=== PATIENT | male | born 1980 | race Caucasian/White ===

== ENCOUNTER 2024-05-24 13:48 | Emergency (ER) | payer OTHER, SELFPAY ==
[2024-05-24 13:53] VITALS: BP 162/99; PULSE 107; RESP 20; TEMP 36.3; O2SAT 97; BMI 30.4
--- NOTE | 2024-05-24 14:27 | ED.GENADULT ---
HPI - General Adult General Date Seen: 05/24/24 Chief complaint: Extremity Pain/Injury, Lower Stated complaint: prior bloodclots.. Off meds for past meds. feeli Time Seen by Provider: 05/24/24 14:05 History of Present Illness HPI narrative: 43-year-old gentleman with a history of right lower extremity DVT. Per his chart from [facility] he has a history of factor 5 Leiden. He reports that he has had at least 2 blood clots over his life. It sounds like after the 1st blood clot he had been managed on Coumadin but then had another blood clot while on Coumadin. His recollection is unclear but it sounds like either he had a clot that broke through his Coumadin therapy or possibly he will was subtherapeutic with his INR. In any case he was changed from Coumadin to Lovenox for about a year. After he had been on Lovenox for while he then saw different doctor and they switched him from Lovenox to Eliquis. He has been on Eliquis for the past 2 and half years. He is little bit unclear about who prescribes it but it sounds like he has a doctor through the [facility] [place] who had been prescribing his Eliquis. He had been on anticoagulation but has been off Eliquis for about a month because of finances. He lost his insurance and cannot afford it. He had been able to contact his doctors at [facility] and they apparently gave him a voucher for a 1 month supply of free Eliquis. He took that and now has been off Eliquis for about a month. He does have some chronic intermittent pain affecting his right calf and popliteal fossa and leg ever since his clot a couple of years ago. He has been having worsening pain in his right leg from his ankle up to his groin and low back. Pain began to get worse 3 days ago on Friday. He is not having any chest pain. No shortness of breath. No fever. No known injury. He also says that since he lost his insurance through his job he has been planning to apply firm [facility] or [facility] It sounds like he and his were going to do that. He says that normally she would help him apply but lately they have been fighting so she is not helping. He has not applied yet for insurance. Related Data Previous Rx's ?Medication ?Instructions ?Recorded enoxaparin 100 mg/mL subcutaneous 100 mg subcut Q12H #14 mL 05/24/24 syringe (Lovenox) warfarin 5 mg tablet 5 mg PO DAILY #7 tabs 05/24/24 Allergies Allergy/AdvReac Type Severity Reaction Status Date / Time No Known Drug Allergies Allergy Verified 05/24/24 13:58 Exam Narrative: Exam Narrative: Constitutional: Appears well-developed and well-nourished. Alert. Conversant. Non toxic. HENT: Head: Atraumatic. Nose: Nose normal. Mouth/Throat: Oral mucosa is clear and moist. no trismus. Pharynx normal. Eyes: Conjunctivae normal. EOM normal. Pupils equal, round, and reactive to light. No scleral icterus. Neck: Normal range of motion. Neck supple. No tracheal deviation present. Cardiovascular: Normal rate, regular rhythm. No gallop. No friction rub. No murmur heard. Symmetric radial artery pulses Pulmonary/Chest: Effort normal. No stridor. No respiratory distress. No wheezes. No rales. No rhonchi . No tenderness. Abdominal: Soft. Bowel sounds normal. No distension. No mass. No tenderness. No rebound. No guarding. Musculoskeletal: RUE: Normal range of motion. No tenderness. No deformity LUE: Normal range of motion. No tenderness. No deformity RLE: Normal range of motion in his hip, knee, ankle. Intact toe wiggling. Distally neurovascularly intact. Normal cap refill. Strong DP and PT artery pulses. Diffuse tenderness on the posterior hamstring, popliteal fossa, calf. No ecchymosis or redness. No palpable cords. Trace edema. LLE: Normal range of motion. No edema. No tenderness. No deformity Neurological: Alert and oriented to person, place, and time. Normal strength. CN II-VII intact. No sensory deficit. GCS eye subscore is 4. GCS verbal subscore is 5. GCS motor subscore is 6. Normal coordination Skin: Skin is warm and dry. No rash noted. No pallor. Normal capillary refill. Psychiatric: Normal mood. Tearful and sad when talking about his Const: Vital Signs, click to edit/add: Vital Signs - 24 hr 05/24/24 13:53 05/24/24 15:28 Temperature 97.4 F L Pulse Rate [Pulse Oximeter] 107 H 98 Respiratory Rate 20 Blood Pressure [Ri ght Upper Arm] 162/99 H 152/118 H Pulse Oximetry 97 97 Oxygen Delivery Me thod Room Air Room Air Course Vital Signs Vital signs: Initial Vital Signs Temperature 97.4 F L 05/24/24 13:53 Temperature Source Temporal Artery Scan 05/24/24 13:53 Pulse Rate 107 H 05/24/24 13:53 Respiratory Rate 20 05/24/24 13:53 Blood Pressure 162/99 H 05/24/24 13:53 Blood Pressure Mean 120 H 05/24/24 13:53 Blood Pressure Position Sitting 05/24/24 13:53 Pulse Oximetry 97 05/24/24 13:53 Oxygen Delivery Method Room Air 05/24/24 13:53 Vital Signs Temperature 97.4 F L 05/24/24 13:53 Pulse Rate 107 H 05/24/24 13:53 Respiratory Rate 20 05/24/24 13:53 Blood Pressure 162/99 H 05/24/24 13:53 Pulse Oximetry 97 05/24/24 13:53 Oxygen Delivery Method Room Air 05/24/24 13:53 Temperature 97.4 F L 05/24/24 13:53 Pulse Rate 98 05/24/24 15:28 Respiratory Rate 20 05/24/24 13:53 Blood Pressure 152/118 H 05/24/24 15:28 Pulse Oximetry 97 05/24/24 15:28 Oxygen Delivery Method Room Air 05/24/24 15:28 Medical Decision Making MDM Narrative Medical decision making narrative: Pleasant 43-year-old gentleman with history of factor 5 Leiden and at least 2 previous DVTs who is supposed to be on lifelong anticoagulation presenting to the ER today with concern for acute on chronic pain affecting his right lower extremity and calf. He has been off his Eliquis for the past month because of insurance of financial problems. It sounds like he lost his work based insurance about 2 months ago. He had received a 1 month supply of Eliquis through his doctors at [facility] but finished that medication about a month ago and has been off all anticoagulation since then. He does have some chronic pain in his right leg which sounds like it may be due to 2 post thrombotic syndrome. However he has had acute on chronic pain with some new trace edema for the past few days. Fortunately he is neurovascularly intact in the right leg. No evidence for acute limb ischemia, cellulitis, necrotizing infection. Differential would include lumbar radiculopathy but primary concern is for possible recurrent DVT since he has been off anticoagulation for month. . Preliminary report of the DVT ultrasound is that is positive for a new acute thrombus in the popliteal vein and calf veins. radiology confirms. Discussed results with the patient. We definitely need to get him back on anticoagulation. He is agreeable to go back on Lovenox bridging to Coumadin at least temporarily. We also consulted social Work. She was able to get him set up with the min sure her insurance registration process so that he can reestablish new insurance. Sounds like he has been without insurance for couple of months and just has not been able to get the application filled out. Note: After I the patient for discharge his nurse came to me. The patient told his nurse that he has been having some shortness of breath lately. He had told me specifically that he is not having any chest pain or shortness of breath. I went back to the patient and readdress this question. Obviously , shortness of breath could be a PE symptom and if he has DVT +PE, we would likely casino change attendant with hospitalization to initiate anticoagulation. I had a detailed discussion about my concern for PE with patient and potential workup and implications if he does have a PE. Patient actually tells me that he is not having any new shortness of breath. Does get short of breath from time to time but that is been a chronic problem and not really worse than normal. He does not want to pursue further workup for PE today. Imaging Data US venous RLE: Attestation: I have reviewed the pertinent imaging results. My impression: Preliminary report from nuclear medicine tech: Positive for DVT from the popliteal vein down into the distal calf veins. This does appear to be acute on chronic. He had a partially occlusive thrombus or scar on previous ultrasound that is now more occlusive. Discharge Plan Discharge Clinical Impression: DVT (deep venous thrombosis), Financial difficulties Patient Disposition: Home, Self-Care Condition: Stable Instructions: Deep Vein Thrombosis (DC), Blood Thinners (ED) Additional Instructions: As we discussed, return to the ER right away if you have any problems-especially if you have worsening leg pain or swelling, numbness or pallor in your foot, any chest pain or trouble breathing. Start on the Lovenox (1 shot twice a day) and the warfarin (1 pill per day) tonight. Continue the Lovenox until your labs show that your INR is therapeutic and you can stop taking Lovenox. Recheck with your doctors [facility] by Friday to have an INR check. Prescriptions: New enoxaparin [Lovenox] 100 mg/mL syringe 100 mg subcut Q12H Qty: 14 0RF warfarin 5 mg tablet 5 mg PO DAILY Qty: 7 2RF Follow Up/Referrals: Provider,Not a Local [Primary Care Provider] - Stand Alone Forms: [employer] Info Instructions
--- OUTSIDE RECORDS SUMMARY | 2024-05-24 15:21 | XMS_ITS ---
Author Organization [facility] Address [address] [place] [address] Care Team Providers Care Software Installer Name Role Phone Unavailable Unavailable Unavailable Surgery Details Not on file Complications Check Surgery Details section. Procedure Estimated Blood Loss Check Surgery Details section. Procedure Findings Check Surgery Details section. Procedure Specimens Taken Check Surgery Details section.
--- OUTSIDE RECORDS SUMMARY | 2024-05-24 15:21 | XMS_ITS | Referral Summary ---
Author Organization [facility] Address [address] [place] [address] Care Team Providers Care Intertype Operator Name Role Phone Peggy Love M.D. Primary Care Provider [phone] Source Comments Patient records contain information from all sites at [facility]. For routine questions regarding patient records, call [phone] during business hours, M-F 8:00 AM - 5:00 PM Central Time. Record requests for emergency care only can be directed to [phone] at any time.[facility] Encounters Date Type Department Care Team Description 04/27/2024 Orders Only [facility] PCP [facility] Peggy Love M.D. Screening Lipid 03/05/2024 Documentation Department of Vascular Medicine in [place], [place] [address] [place] [address] Kristopher Tang M.D. 03/05/2024 Clinical Communication Department of Vascular Medicine in [place], [place] [address] [place] [address] Kristopher Tang M.D. Med Question from Last 3 Months Allergies Active Allergy Reactions Criticality Noted Date Comments Sertraline Other (see comments) 01/14/2018 Crazy dreams and paranoia Medications * This document contains information received from the source organization and may not represent a complete record from that organization. fluticasone propion-salmete roL (AIRDUO RESPICLICK) 232-14 mcg/actuation inhaler INHALE 1 PUFF BY MOUTH TWICE DAILY. RINSE MOUTH AFTER USE 3 each 2 Active montelukast (SINGULAIR) 10 mg tablet TAKE 1 TABLET(10 MG) BY MOUTH AT BEDTIME 90 tablet 3 3 Active albuterol 90 mcg/actuation inhaler Inhale 2 puffs every 4 (four) hours as needed for wheezing or shortness of breath. 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6 oz pur e alcohol) Humiliation, Afraid, Rape, and Kick questionnair e Answer Date Recorded Within the last year, have y ou been afraid of your partner or ex-partner? No 06/08/2020 Within the last year, have y ou been humiliated or emotionally abused in other ways by your partner or ex-partner? No Within the last year, have y ou been kicked, hit, slapped, or otherwise physically hurt by your partner or ex-partner? No 06/08/2020 Within the last year, have y ou been raped or forced to have any kind of sexual activity by your partner or ex-partner? No 06/08/2020 Social Connection and Isolation Panel [NHANES] A nswer Date Recorded In a typical week, how many times do you talk on the phone with family, friends, or neighbors? Never 06/08/20 20 How often do you get togethe r with friends or relatives? Never 06/08/2020 How often do you attend chur ch or buddhist services? Never 06/08/2020 Do you belong to any clubs o r organizations such as adventist groups, unions, fraternal or athletic groups, or school groups? No 06/08/2020 How often do you attend meet ings of the clubs or organizations you belong to? 1 to 4 times per year 06/08/2020 Are you , , di vorced, , never , or living with a partner? 06/08/2020 AUDIT-C Answer Date Recorded Q1: How often do you have a drink containing alc ohol? 2-3 times a week 06/08/2020 Q2: How many drinks containi ng alcohol do you have on a typical day when you are drinking? 3 or 4 06/08/2020 Q3: How often do you have si x or more drinks on one occasion? Monthly 06/08/2020 Overall Financial Resource Strain (CARDIA) Answe r Date Recorded How hard is it for you to pa y for the very basics like food, housing, medical care, and heating? Not hard at all 06/08/2020 PHQ-2 Answer Date Recorded PHQ-2 Score 1 07/04/2020 Exercise Vital Sign Answer Date Recorde d Days of Exercise per Week Not on file 2019 On average, how many minutes do you engage in exercise at this level? 10 min 06/08/2020 Hunger Vital Sign Answer Date Recorded Within the past 12 months, y ou worried that your food would run out before you got the money to buy more. Never true 06/08/20 20 Within the past 12 months, t he food you bought just didn't last and you didn't have money to get more. Never true 06/08/2020 PRAPARE - Transportation Answer Date Re corded In the past 12 months, has l ack of transportation kept you from medical appointments or from getting medications? No 05/23 In the past 12 months, has l ack of transportation kept you from meetings, work, or from getting things needed for daily living? No 06/08/2020 Depression Answer Date Recor ded PHQ-9 Total Score (max 27) 12 06/08 Nutrition Answer Date Recorded Nutrition: EVOO Fat Source Unknown 06/12 Nutrition: Servings of Fruits/Vegetables per Day Not on file 06/12/2023 Dental Answer Date Recorded Dental: Regular Dentist Unknown 06/12/20 Education Answer Date Recorded What is the highest level of school you have completed or the highest degree you have received? 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 Gender Identity Not on file Sexual Orientation Not on file Last Filed Vital Signs Vital Sign Reading Time Taken Comments Blood Pressure 147/102 02/25/2023 10:38 AM CDT Pulse 77 02/25/2023 10:38 AM CDT Temperature 36.5 C (97.7 F) 02/25/2023 10:38 AM CDT Respiratory Rate 18 02/25/2023 10:3 8 AM CDT Oxygen Saturation 97% 02/25/2023 10: 38 AM CDT Inhaled Oxygen Concentration - - Weight 99.2 kg (218 lb 11.1 oz) 01/02/2023 2:25 PM CDT Height 182.9 cm (6') 09/04/2020 10:37 AM CDT Body Mass Index 29.66 09/04/2020 10:37 AM CDT Plan of Treatment Not on file Medical Devices Implanted Type Area Green Ware Caster Device Identifier Shelf Expiration Date Model / Serial / Lot Cardiac Other- Implanted:Qty: 1 on 07/07/2020 Cardiac Other Chest Description:Heart monitor, L inx brand Insurance [facility] Care Teams Intertype Operator Relationship Specialty Start Date End Date Peggy Love M.D. [address] [phone] PCP - General 11/23/21
--- OUTSIDE RECORDS SUMMARY | 2024-05-24 15:21 | XMS_ITS | Clinical Summary ---
Author Organization [facility] Address [address] [place] [address] Care Team Providers Care Post Hole Digging Machine Operator Name Role Phone Peggy Love M.D. Primary Care Provider Source Comments Patient records contain information from all sites at [facility]. For routine questions regarding patient records, call [phone] during business hours, M-F 8:00 AM - 5:00 PM Central Time. 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 Screening Lipid 03/05/2024 Documentation Department of Vascular Medicine in [place], [place] [address] [place] [address] Kristopher Tang M.D. 03/05/2024 Clinical Communication Department of Vascular Medicine in [place], [place] [address] [place] [address] Kristopher Tang M.D. Med Question from Last 3 Months Immunizations Name Administration Dates Next Due SARS-COV-2 (COVID-19) - PFIZ ER (Discontinued)(12 years or older) 05/15/2021 Td (Adult), adsorbed 12/22/2004 Td, (Adult) Unspecified 12/22/2004 Tdap 11/03/2018 Family History Medical History Relation Name Comments Heart attack Maternal Grandfather Pacemaker rhythm Maternal Grandfather Relation Name Status Comments Maternal Grandfather Maternal Grandmother Alive Social History Tobacco Use Types Packs/Day Years [...] often do you attend chur ch or anabaptist services? 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 Gender Identity Not on file Sexual Orientation [...] 09/04/2020 10:37 AM CDT Plan of Treatment Health Maintenance Due Date Last Done Comments HIV Screening 1979 Hepatitis C Screening 1980 Hepatitis B Vaccines (1 of 3 - 19+ 3-dose series) 09/02/1998 Depression Screening (Annual PHQ-2) 06/23/2023 Lipid (Cholesterol) Screening 11/04/2023, 11/03/2018 (Performed elsewhere) COVID-19 Vaccine (3 - 2023-2 5 season) 2024 05/15/2021, 04/24/2021 Influenza Vaccine (#1) 2024 DTaP,Tdap,and Td Vaccines (2 - Td or Tdap) 11/03/2028 11/03/2018, 12/22/2004, 12/22/2004 HPV Vaccines Aged Out No longer eligi ble based on patient's age to complete this topic IPV Vaccines Aged Out No longer eligi ble based on patient's age to complete this topic Pneumococcal vaccine (0-64 years) Aged Out No longer eligible b ased on patient's age to complete this topic Medical Devices Implanted Type Area Signalman Device Identifier Shelf Expiration Date Model / Serial / Lot Cardiac Other- Implanted:Qty: 1 on 07/07/2020 Cardiac Other Chest Description:Heart monitor, L inx brand Insurance [email or web address] Care Teams Post Hole Digging Machine Operator Relationship Specialty Start Date End Date Peggy Love M.D. [address] [place] [phone] PCP - General 11/23/21
--- OUTSIDE RECORDS SUMMARY | 2024-05-24 15:21 | XMS_ITS | Encounter Summary ---
Author Organization [facility] Address [address] [place] [address] Care Team Providers Care Extrusion Manager Name Role Phone Peggy Love M.D. Primary Care Provider [phone] Encounter Details Date Type Department Care Team (Late st Contact Info) Description 04/27/2024 Orders Only [facility] Peggy Love M.D. [address] [place] [phone] Screening Lipid Social History Tobacco Use Types Packs/Day Years Used Date Smoking Tobacco: Former Smokeless Tobacco: Never Alcohol Use Standard Drinks/Week Comments Yes 0 [...] 06/08/2020 How often do you attend chur or latter-day services? 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 Gender Identity Not on file Sexual Orientation Not on file documented as of this encounter Plan of Treatment Scheduled Orders Name Type Priority Associated Diagnoses Orde r Schedule Lipid Panel Lab Routine Screening Lipid Expected: 05/11/2024, Expires: 10/24/2024 documented as of this encounter Visit Diagnoses Diagnosis Screening Lipid documented in this encounter Additional Health Concerns Assessment Noted Time PHQ-9 Depression Total Score: 12 020 10:38 AM CORDWOOD CUTTER HELPER documented as of this encounter Care Teams Extrusion Manager Relationship Specialty Start Date End Date Peggy Love M.D. [address] [place] [phone] PCP - General 11/23/21 documented as of this encounter
--- OUTSIDE RECORDS SUMMARY | 2024-05-24 15:21 | XMS_ITS | Clinical Summary ---
Author Organization [facility] Attendify [facility] & [facility] Address [place], [place] [address] Care Team Providers Care Software Validation Engineer Name Role Phone Pcp, No Primary Care Provider Unavailabl e Allergies Active Allergy Reactions Criticality Noted Date Comments Sertraline Other - Describe In Comment Field 01/14/2018 Crazy dreams and paranoia Medications Medication Sig Dispensed Refills Start Date End Date Status apixaban (ELIQUIS) 2.5 mg tablet Take 1 tablet by mouth 2 times daily. 0 04/11/2020 Active inhalational spacing deviceIndications:In fluenza For home use. 1 Each 07/15/2023 Active albuterol HFA (PRO-AIR; VENTOLIN; PROVENTIL) 90 mcg/actuation inhalerIndications:I nfluenza Inhale 2 Puffs by mouth every 4 hours if needed for Shortness Of Breath or Wheezing. 1 Each 1 07/15/2023 Active Graduated Compression StockingsIndications :Right leg pain 20-30 mmHg knee high compression stockings. Wear as directed. 3 Packet 3 01/28/2024 Active Active Problems Problem Noted Date Diagnosed Date Multiple pulmonary nodules 07/04/2020 Factor 5 Leiden mutation, heterozygous 8 Acute deep vein thrombosis ( DVT) of femoral vein of right lower extremity 09/30/2017 Resolved Problems Problem Noted Date Diagnosed Date Resolved Date Anticoagulation monitoring, INR range 2-3 09/30/2017 11/03/2018 Encounters Date Type Department Care Team Description 05/24/2024 Nurse Triage [facility] [address] [facility] [address] [place] [address] Pcp, No Leg Pain/problem from Last 3 Months Immunizations Name Administration Dates Next Due TD, UNSPECIFIED 12/22/2004 Td (Age >=7 Years) 12/22/2004 Tdap 11/03/2018 Family History Medical History Relation Name Comments No Known Problems Father unknown - dad's side Coronary artery disease Maternal Grandfather Cancer-colon Maternal Grandmother Fibromyalgia Mother Relation Name Status Comments Father Maternal Grandfather Maternal Grandmother Mother Social History Tobacco Use Types Packs/Day Years Used Date Smoking Tobacco: Former Cigarettes 1 999 - 06/23/2001 Smokeless Tobacco: Former Tobacco Cessation:Counseling Given: Not Answered Alcohol Use Standard Drinks/Week Comments Yes 10 (1 standard drink = 0.6 oz pu re alcohol) Daily PHQ-2 Answer Date Recorded PHQ-2 TOTAL SCORE 3 12/05/2023 Social Connections Answer Date Recorded Do you often feel lonely or isolated from those around you? 0 07/01/2023 Financial Resource Strain Answer Date R ecorded Difficulty of Paying Living Expenses 3 07/01/2023 Difficulty of Paying Living Expenses Not on file 07/01/2023 Food Insecurity Answer Date Recorded Do you worry your food will run out before you are able to buy more? 1 07/01/2023 Transportation Needs Answer Date Record ed Does lack of transportation keep you from medica l appointments? 1 07/01/2023 Does lack of transportation keep you from work, meetings or getting things that you need? 1 07/01/2023 Housing Stability Answer Date Recorded What is your housing situation today? 1 07/01/2023 Sex and Gender Information Value Date Recorded Sex Assigned at Not on file Gender Identity Not on file Sexual Orientation Not on file Obstetrics History Last Filed Vital Signs Vital Sign Reading Time Taken Comments Blood Pressure 136/86 01/28/2024 1:27 PM CDT Pulse 81 01/28/2024 1:25 PM CDT Temperature 37 C (98.6 F) 01/22/2024 1:31 PM CDT Respiratory Rate 12 01/28/2024 1:25 PM CDT Oxygen Saturation 94% 01/28/2024 1:25 PM CDT Inhaled Oxygen Concentration - - Weight 104.3 kg (230 lb) 01/22/2024 1:31 PM CDT Height 182.9 cm (6') 12/05/2023 1:17 PM CDT Body Mass Index 31.19 12/05/2023 1:17 PM CDT Plan of Treatment Health Maintenance Due Date Last Done Comments HIV for age 15-65 09/02/1994 Hepatitis C screening for age 18-79 09/02/1997 Lipids for age 35-44 11/04/2023 11/03/2018 COVID-19 vaccine series (2023- season) 2024 05/15/2021, 04/24/2021 Influenza for age 9-49 02/22/2024 BMI (ht and wt on same day) for age 18+ 12/04/2024 12/05/2023, 07/11/2020, 07/07/2020, Additional history exists Depression screening for age 12+ 12/04/2024 12/05/2023, 11/04/2018, 11/03/2018, Additional history exists Tetanus booster 11/03/2028 11/03/2018, 07/2004, 12/22/2004 Tdap Completed 11/03/2018 Pneumococcal series for age 6-64 Aged Out No longer eligible based on patient's age to complete this topic Procedures Procedure Name Priority Date/Time Associated Diagnosis Comments LIPID PANEL W REFLEX MEASURED LDL Routine 11/03/2018 10:25 AM CDT Lipid screening from Last 3 Months or Most Recently Relevant to Health Maintenance Results * (ABNORMAL) LIPID PANEL W REFLEX MEASURED LDL (11/03/2018 10:25 AM CDT) CHOLESTEROL,TOTAL 189 100 - 199 mg/dL 11/03/2018 5:25 PM CDT [facility] TRIGLYCERIDES 161(H) <150 mg/dL 11/03/2018 5:25 PM CDT [facility] HDL CHOLESTEROL 45 >40 mg/dL 9 5:25 PM CDT [facility] NON-HDL CHOLESTEROL 144 <145 mg/dl 11/03/2018 5:25 PM CDT [facility] CHOL/HDL RATIO 4.20 <4.50 11/03/2018 5:25 PM CDT [facility] LDL CHOLESTEROL 112 <=130 mg/dL 11/03/2018 5:25 PM CDT [facility] PROVIDER ORDERED STATUS RANDOM 11/03/2018 5:25 PM CDT [facility] Blood BLOOD SPECIMEN / Unknown Venipuncture / Unknown 11/03/2018 10:25 AM CDT 11/03/2018 10:25 AM CDT Ananth Dillon MD CHEMISTRY [facility] [address] [place] [address], from Last 3 Months or Most Recently Relevant to Health Maintenance Advance Directives * Full Code (Latest Code Status on File) Date Activated Date Inactivated Comments 07/31/2020 11:36 AM 07/31/2020 3:45 PM Question Answer Comments Code Status Discussion: Per Existing Order Care Teams Software Validation Engineer Relationship Specialty Start Date End Date Pcp, No . PCP - General 01/16/24
--- OUTSIDE RECORDS SUMMARY | 2024-05-24 15:22 | XMS_ITS | Encounter Summary ---
Author Organization [facility] Address [address] [place] [address] Care Team Providers Care Fingernail Sculptor Name Role Phone Peggy Love M.D. Primary Care Provider Reason for Visit * Reason Onset Date Comments Med Question 03/05/2024 Encounter Details Date Type Department Care Team (Late st Contact Info) Description 03/05/2024 Clinical Communication Department of Vascular Medicine in [place], [place] [address] [place] [address] Kristopher aTng M.D. [address] [place] [address] Med Question Social History Tobacco Use Types Packs/Day Years [...] often do you attend chur ch or islam services? Never 06/08/2020 Do you belong to any clubs o r organizations such as pentecostalism groups, unions, fraternal or athletic groups, or [...] on file Legal Sex Male 5:11 PM FRUIT THINNER Gender Identity Not on file Sexual Orientation Not on file documented as of this encounter Miscellaneous Notes * Telephone Encounter - Jasmyn Rodarte - 03/05/2024 10:53 AM CDT Mr. Moore called and said that he lost his insurance. He is unable to purchase Eliquis and he ranout of his medication yesterday. He said that in April he is going to be looking at open enrollment and should hopefully have insurance then. He is wondering if there is a program where he can get2 months free, or if there is something else he can do besides take Eliquis. He can be reached at [phone]. documented in this encounter Plan of Treatment Not on file documented as of this encounter Visit Diagnoses Not on filedocumented in this encounter Additional Health Concerns Assessment Noted Time PHQ-9 Depression Total Score: 12 020 10:38 AM FRUIT THINNER documented as of this encounter Care Teams Fingernail Sculptor Relationship Specialty Start Date End Date Peggy Love M.D. [address] [place] [phone] PCP - General 11/23/21 documented as of this encounter
--- OUTSIDE RECORDS SUMMARY | 2024-05-24 15:22 | XMS_ITS | Encounter Summary ---
Author Organization [facility] Address [address] [place] [address] Care Team Providers Care Slunk Skinner Name Role Phone Peggy Love M.D. Primary Care Provider Encounter Details Date Type Department Care Team (Late st Contact Info) Description 03/05/2024 Documentation Department of Vascular Medicine in [place], [place] [address] [place] [address] Kristopher Tang M.D. [address] [place] [address] Social History Tobacco Use Types Packs/Day Years [...] often do you attend chur ch or roman catholic services? Never 06/08/2020 Do you belong to any clubs o r organizations such as quaker groups, unions, fraternal or athletic groups, or [...] on file Legal Sex Male 5:11 PM NEWS LIBRARY DIRECTOR Gender Identity Not on file Sexual Orientation Not on file documented as of this encounter Progress Notes * Kristopher Tang M.D. - 03/05/2024 11:36 AM CDT I spoke to Mr. Moore this morning. He has lost his insurance, and he can no longer afford apixaban (5 mg BID). He took his last dose yesterday. We talked about starting warfarin through a local physician in [place]. He might be able to re-enroll for insurance in April. I will mail to him some coupons for apixaban. History of recurrent phlebitis. Factor V Leiden heterozygote. documented in this encounter Plan of Treatment Not on file documented as of this encounter Visit Diagnoses Not on filedocumented in this encounter Additional Health Concerns Assessment Noted Time PHQ-9 Depression Total Score: 12 020 10:38 AM NEWS LIBRARY DIRECTOR documented as of this encounter Care Teams Slunk Skinner Relationship Specialty Start Date End Date Peggy Love M.D. [address] [phone] PCP - General 11/23/21 documented as of this encounter
--- NOTE | 2024-05-24 15:25 | CRLHL7_ITS ---
For Patients: As a result of the Cures Act, medical imaging exams and procedure reports are released immediately into your electronic medical record. You may view this report before your referring provider. If you have questions, please contact your health care provider. INDICATION: Pain. History of DVT. TECHNIQUE: Ultrasound venous duplex lower right extremity. Compression venous exam was performed using aguilar-scale, color Doppler, and spectral Doppler analysis. COMPARISON: 06/28/2019. FINDINGS: Visualized right common femoral, deep femoral, superficial femoral and greater saphenous veins are patent. Heterogeneous noncompressible material consistent with deep venous thrombosis is present in the right popliteal, posterior tibial and peroneal veins which is new or increased since the comparison exam from 2019. Contralateral left common femoral vein is patent. Soft tissues elsewhere as imaged are unremarkable. IMPRESSION: Right lower extremity deep venous thrombosis involving the popliteal, posterior tibial and peroneal veins. Via emergency painting department supervisor, deep venous thrombosis was known by Dr. Perry prior to formal interpretation on 05/24/2024. Dr. Perry was off duty and patient was discharged prior to formal interpretation. Dictated by Gustavo Smith MD @ 05/24/2024 5:28:59 PM Dictated by: Gustavo Smith MD @ 05/24/2024 17:29:24 (Electronically Signed)
[2024-05-24 15:28] VITALS: BP 152/118; PULSE 98; O2SAT 97
--- OUTSIDE RECORDS SUMMARY | 2024-05-24 21:10 | XMS_ITS | Encounter Summary ---
Author Organization [facility] Address [address] [place] [address] Care Team Providers Care Home Furnishings Sales Representative Name Role Phone Peggy Love M.D. Primary Care Provider Reason for Visit * Reason Onset Date Comments Med Question 03/05/2024 Encounter Details Date Type Department Care Team (Late st Contact Info) Description 03/05/2024 Clinical Communication Department of Vascular Medicine in [place], [place] [address] [place] [address] Kristopher Tang M.D. [address] [place] [address] Med Question Social History Tobacco Use Types [...] often do you attend chur ch or hindu services? Never 06/08/2020 Do you belong to any clubs o r organizations such as alevism groups, unions, fraternal or athletic groups, or [...] on file Legal Sex Male 5:11 PM CRUCIBLE PACKER Gender Identity Not on file Sexual Orientation [...] take Eliquis. He can be reached at . documented in this encounter Plan of Treatment Not on file documented as of this encounter Visit Diagnoses Not on filedocumented in this encounter Additional Health Concerns Assessment Noted Time PHQ-9 Depression Total Score: 12 020 10:38 AM CRUCIBLE PACKER documented as of this encounter Care Teams Home Furnishings Sales Representative Relationship Specialty Start Date End Date Peggy Love M.D. [address] [place] [phone] PCP - General 11/23/21 documented as of this encounter
--- OUTSIDE RECORDS SUMMARY | 2024-05-24 21:10 | XMS_ITS | Referral Summary ---
Author Organization [facility] Address [address] [place] [address] Care Team Providers Care Assistant Business Manager Name Role Phone Peggy Love M.D. Primary Care Provider [phone] Source Comments Patient records contain information from all sites at [facility]. For routine questions regarding patient records, call [phone] during business hours, M-F 8:00 AM - 5:00 PM Central Time. Record requests for emergency care only can be directed to [phone] at any time.[facility] Encounters Date Type Department Care Team Description 04/27/2024 Orders Only [facility] PCP [facility] LM Peggy Love M.D. Screening Lipid 03/05/2024 Documentation Department of Vascular Medicine in [place], [place] [address] [place] [address] Kristopher Tang M.D. 03/05/2024 Clinical Communication Department of Vascular Medicine in [place], [place] [address] [place] [address] Kristopher Tang M.D. Med Question from Last [...] often do you attend chur ch or quaker services? Never 06/08/2020 Do you belong to any clubs o r organizations such as catholic groups, unions, fraternal or athletic groups, or [...] on file Legal Sex Male 5:11 PM PRESCHOOL DIRECTOR Gender Identity Not on file Sexual [...] on file Medical Devices Implanted Type Area Computer Applications Engineer Device Identifier Shelf Expiration Date Model / Serial / Lot Cardiac Other- Implanted:Qty: 1 on 07/07/2020 Cardiac Other Chest Description:Heart monitor, L inx brand Insurance [facility] Care Teams Assistant Business Manager Relationship Specialty Start Date End Date Peggy Love M.D. [address] [phone] PCP - General 11/23/21
--- OUTSIDE RECORDS SUMMARY | 2024-05-24 21:10 | XMS_ITS ---
Author Organization [facility] Address [address] [place] [address] Care Team Providers Care Crane Operator Cab Name Role Phone Unavailable Unavailable Unavailable Surgery Details Not on file Complications Check Surgery Details section. Procedure Estimated Blood Loss Check Surgery Details section. Procedure Findings Check Surgery Details section. Procedure Specimens Taken Check Surgery Details section.
--- OUTSIDE RECORDS SUMMARY | 2024-05-24 21:10 | XMS_ITS | Clinical Summary ---
Author Organization [facility] Address [address] [place] [address] Care Team Providers Care Etcher Photoengraving Name Role Phone Peggy Love M.D. Primary Care Provider Source Comments Patient records contain information from all sites at [facility]. For routine questions regarding patient records, call [phone] during business hours, M-F 8:00 AM - 5:00 PM Central Time. Record requests for emergency care only can be directed to [phone] at any time.[facility] Allergies Active Allergy Reactions Criticality Noted Date [...] 03/05/2024 Documentation Department of Vascular Medicine in [place], [place] [address] [place] [address] Kristopher Tang M.D. 03/05/2024 Clinical Communication Department of Vascular Medicine in [place], [place] [address] [place] [address] Kristopher Tang M.D. Med Question from Last [...] any clubs o r organizations such as jew groups, unions, fraternal or athletic groups, or [...] on file Legal Sex Male 5:11 PM ENGINEER SYSTEMS Gender Identity Not on file Sexual Orientation [...] this topic Medical Devices Implanted Type Area Cashier Associate Device Identifier Shelf Expiration Date Model / Serial / Lot Cardiac Other- Implanted:Qty: 1 on 07/07/2020 Cardiac Other Chest Description:Heart monitor, L inx brand Insurance [facility] Care Teams Etcher Photoengraving Relationship Specialty Start Date End Date Peggy Love M.D. [address] [place] [phone] PCP - General 11/23/21
--- OUTSIDE RECORDS SUMMARY | 2024-05-24 21:10 | XMS_ITS | Clinical Summary ---
Author Organization [facility] Address [place], [place] [address] Care Team Providers Care Installer Helper Name Role Phone Pcp, No Primary Care [...] Department Care Team Description 05/24/[address] [facility] [address] [place] [address] Pcp, No Leg Pain/problem from Last 3 [...] - 199 mg/dL 11/03/2018 5:25 PM CDT [facility] TRIGLYCERIDES 161(H) <150 mg/dL 11/03/2018 5:25 PM CDT [facility] HDL CHOLESTEROL 45 >40 mg/dL 9 5:25 PM CDT [facility] NON-HDL CHOLESTEROL 144 <145 mg/dl 11/03/2018 5:25 PM CDT [facility] CHOL/HDL RATIO 4.20 <4.50 11/03/2018 5:25 PM CDT [facility] LDL CHOLESTEROL 112 <=130 mg/dL 11/03/2018 5:25 PM CDT [facility] PROVIDER ORDERED STATUS RANDOM 11/03/2018 5:25 PM CDT [facility] Blood BLOOD SPECIMEN / Unknown Venipuncture / Unknown 11/03/2018 10:25 AM CDT 11/03/2018 10:25 AM CDT Ananth Dillon MD CHEMISTRY [facility] [address] [place] [address], from Last 3 Months or Most Recently Relevant to Health Maintenance Advance Directives * Full Code (Latest Code Status on File) Date Activated Date Inactivated Comments 07/31/2020 11:36 AM 07/31/2020 3:45 PM Question Answer Comments Code Status Discussion: Per Existing Order Care Teams Installer Helper Relationship Specialty Start Date End Date Pcp, No . PCP - General 01/16/24
--- OUTSIDE RECORDS SUMMARY | 2024-05-24 21:10 | XMS_ITS | Encounter Summary ---
Author Organization [facility] Address [address] [place] [address] Care Team Providers Care Cloth Shearer Name Role Phone Peggy Love M.D. Primary Care Provider Encounter Details Date Type Department Care Team (Late st Contact Info) Description 03/05/2024 Documentation Department of Vascular Medicine in [place], [place] [address] [place] [address] Kristopher Tang M.D. [address] [place] [address] Social History Tobacco Use Types Packs/Day Years [...] often do you attend chur ch or judaism services? Never 06/08/2020 Do you belong to any clubs o r organizations such as protestant groups, unions, fraternal or athletic groups, or [...] on file Legal Sex Male 5:11 PM PUBLIC EMPLOYMENT MEDIATOR Gender Identity Not on file Sexual Orientation [...] starting warfarin through a local physician in [place]. He might be able to re-enroll for [...] Depression Total Score: 12 020 10:38 AM PUBLIC EMPLOYMENT MEDIATOR documented as of this encounter Care Teams Cloth Shearer Relationship Specialty Start Date End Date Peggy Love M.D. [address] [phone] PCP - General 11/23/21 documented as of this encounter
--- OUTSIDE RECORDS SUMMARY | 2024-05-24 21:10 | XMS_ITS | Encounter Summary ---
Author Organization [facility] Address [address] [place] [address] Care Team Providers Care Tape Recording Machine Operator Name Role Phone Peggy Love M.D. Primary Care Provider [phone]- [phone] Encounter Details Date Type Department Care Team (Late st Contact Info) Description 04/27/2024 Orders Only [facility] PCP [facility] Peggy Love M.D. [address] [place] [phone] Screening Lipid Social History Tobacco Use Types [...] How often do you attend chur or taoism services? Never 06/08/2020 Do you belong to any clubs o r organizations such as sikhism groups, unions, fraternal or athletic groups, or [...] on file Legal Sex Male 5:11 PM COUNTER CASER Gender Identity Not on file Sexual Orientation [...] Depression Total Score: 12 020 10:38 AM COUNTER CASER documented as of this encounter Care Teams Tape Recording Machine Operator Relationship Specialty Start Date End Date Peggy Love M.D. [address] [place] [phone] PCP - General 11/23/21 documented as of this encounter
== END 2024-05-24 16:36 | disposition home or self-care (01) ==
PROVIDERS: Emergency Provider Emergency Medicine
DX: I82.401 Acute embolism and thrombosis of unspecified deep veins of right lower extremity (principal); Z59.71 Insufficient health insurance coverage; Z59.9 Problem related to housing and economic circumstances, unspecified
CPT/HCPCS: 93971; 99284

== ENCOUNTER 2025-02-27 20:02 | Outpatient (CLI) | payer OTHER, SELFPAY | END 2025-02-27 20:03 | disposition home or self-care (01) | LOC: AMB 03-03 11:03 | PROVIDERS: Visit Provider Emergency Medicine ==